=== PATIENT | male | born 1990 | race Caucasian/White ===

== ENCOUNTER 2021-11-21 18:56 | Emergency (ER) | payer OTHER ==
[~2021-11-21] VITALS: Ht 180.3 cm; Wt 65.8 kg
[2021-11-21 19:26] VITALS: BP_SYST 122
--- NOTE | 2021-11-21 20:17 | NUR ---
Patient to ER bed H2 to gown for evaluation. Side rails up.
--- NOTE | 2021-11-21 20:20 | NUR ---
31 y/o F brought self in from home for prescription refills. Arrived in no acute distress. Breathing adequately on RA.
--- NOTE | 2021-11-21 20:35 | NUR ---
ER at bedside examining patient.
[2021-11-21] MEDS ORDERED: INSU100I26 SQ (21:11)
[2021-11-21 21:19] VITALS: BP_SYST 122
--- NOTE | 2021-11-21 21:22 | NUR ---
Patient given written and verbal discharge instructions and verbalizes understanding. ER MD discussed with patient the results and treatment provided. Patient in stable condition. ID arm band removed. Rx of Basaglar given. Patient educated on pain management and to follow up with PMD. Pain Scale 0/10. Opportunity for questions provided and answered. Medication side effect fact sheet provided.
== END 2021-11-21 21:19 | disposition home or self-care (01) ==
LOC: SED 18:56
DX: Z76.0 Encounter for issue of repeat prescription (principal); E11.9 Type 2 diabetes mellitus without complications; Z79.899 Other long term (current) drug therapy
CPT/HCPCS: 82962; 99281; 99282